=== PATIENT | male | born 1940 | race Caucasian/White ===

== ENCOUNTER 2018-02-23 15:00 | Inpatient (IN) | payer MEDICARE, OTHER ==
[2018-02-23 15:36] LABS: ABNORMAL IP MESSAGE 1; HEMATOCRIT 36.2 % (42.0-52.0); HEMOGLOBIN 11.2 g/dl (14.0-18.0); MEAN CORPUSCULAR HEMOGLOBIN 28.8 pg (29.0-33.0); MEAN CORPUSCULAR HGB CONC 30.9 g/dl (32.0-37.0); MEAN CORPUSCULAR VOLUME 93.1 fl (82.0-101.0); MEAN PLATELET VOLUME 10.9 fl (7.4-10.4); PLATELET COUNT 324 10^3/UL (140-415); POSITIVE DIFF @See below; RED BLOOD COUNT 3.89 10^6/ul (4.70-6.10); RED CELL DISTRIBUTION WIDTH 15.5 % (11.5-14.5)
[2018-02-23 15:36] LABS: WHITE BLOOD COUNT 20.3 10^3/ul (4.8-10.8)
[2018-02-23 15:41] LABS: ADD MAN DIFF? YES
[2018-02-23 15:53] LABS: ALANINE AMINOTRANSFERASE 28 IU/L (13-69); ALBUMIN 3.5 g/dl (3.3-4.9); ALBUMIN/GLOBULIN RATIO 1.16; ALKALINE PHOSPHATASE 93 IU/L (42-121); ANION GAP 6 (5-13); ASPARTATE AMINO TRANSFERASE 27 IU/L (15-46); BILIRUBIN,INDIRECT 0.6 mg/dl (0-1.1); BILIRUBIN,TOTAL 0.6 mg/dl (0.2-1.3); BLOOD UREA NITROGEN 32 mg/dl (7-20); CALCIUM 9.7 mg/dl (8.4-10.2); CARBON DIOXIDE 38 mmol/L (21-31); CHLORIDE 99 mmol/L (97-110); CREATININE 0.68 mg/dl (0.61-1.24); GLUCOSE 176 mg/dl (70-220); POTASSIUM 3.6 mmol/L (3.5-5.1); SODIUM 143 mmol/L (135-144); TOTAL PROTEIN 6.5 g/dl (6.1-8.1)
[2018-02-23 15:55] LABS: INR 1.52; PROTIME 18.6 Sec (11.9-14.9); PT RATIO 1.5
[2018-02-23 15:56] LABS: PARTIAL THROMBOPLASTIN TIME 45.5 Sec (23.0-35.0)
[2018-02-23 16:00] LABS: ADD UMIC YES; UR ASCORBIC ACID 40 mg/dL (NEGATIVE); UR BACTERIA FEW /HPF (NONE SEEN); UR BILIRUBIN (Dip) NEGATIVE (NEGATIVE); UR BLOOD (Dip) NEGATIVE (NEGATIVE); UR CLARITY CLEAR (CLEAR); UR COLOR YELLOW (YELLOW); UR GLUCOSE (Dip) NEGATIVE (NEGATIVE); UR KETONES (Dip) NEGATIVE (NEGATIVE); UR LEUKOCYTE ESTERASE (Dip) NEGATIVE Leu/ul (NEGATIVE); UR MUCUS FEW /HPF (NONE SEEN); UR NITRITE (Dip) NEGATIVE (NEGATIVE); UR RBC 2 /HPF (0-5); UR SPECIFIC GRAVITY (Dip) 1.025 (1.003-1.030); UR TOTAL PROTEIN (Dip) 1+ mg/dl (NEGATIVE); UR UROBILINOGEN (Dip) 1+ mg/dL (NEGATIVE); UR WBC 3 /HPF (0-5)
[2018-02-23 16:05] LABS: TROPONIN-I 0.016 ng/ml (0.000-0.120)
[2018-02-23 16:11] LABS: ANISOCYTOSIS 1+ (0-0); BAND NEUTROPHILS #M 0.8 10^3/ul (0.0-0.6); BAND NEUTROPHILS % (M) 4 % (0-4); BASOPHIL #M 0.2 10^3/ul (0.0-0.0); BASOPHILS % (M) 1 % (0-2); LYMPHOCYTES #M 0.4 10^3/ul (0.8-2.9); LYMPHOCYTES % (M) 2 % (15-51); MICROCYTOSIS 1+ (0-0); MONOCYTE #M 0.6 10^3/ul (0.3-0.9); MONOCYTES % (M) 3 % (0-11); MYELOCYTES #M 0.2 10^3/ul (0.0-0.0); MYELOCYTES % (M) 1 % (0-0); OVALOCYTES 1+ (0-0); PLATELET ESTIMATE NORMAL; POIKILOCYTOSIS 1+ (0-0); SEG NEUT #M 18.2 10^3/ul (1.6-7.5); SEGMENTED NEUTROPHILS (M) % 89 % (39-77); SMUDGE%M 3 % (0-0)
[2018-02-23] MEDS: MEROPENEM 1 GM/50ML(PMX) 50 ML IVPB (17:52)
[2018-02-23] MEDS: SOD CHLORIDE 0.9% IV (17:52)
[2018-02-23] MEDS: VANCOMYCIN 1 GM (PMX) 250 ML IVPB (18:29)
[2018-02-23 19:43] LABS: LACTIC ACID 2.7 mmol/L (0.5-2.0)
[2018-02-23 22:43] LABS: AADO2 Arterial 590.1 mmHg (7.0-24.0); Arterial Base Excess 3.5 mmol/L (-3.0-3); Arterial Blood Gas Oxygen Sat 85.7 mmHG (95.0-100.0); Arterial Fraction of Oxyhgb 84.8 % (93.0-99.0); Arterial HCO3 31.9 mmol/L (22.0-26.0); Arterial MetHb 0.1 % (0.0-1.5); Arterial pCO2 67.9 mmhg (35-45); MODE TRACH COLLAR; Site Right Brachial
[2018-02-23] MEDS ORDERED: VANCOMYCIN IV PER PHARMACY XX (23:00)
[2018-02-23] MEDS ORDERED: ACETAMINOPHEN 650MG/20.3ML CUP GTB (23:00)
[2018-02-23] MEDS ORDERED: DILTIAZEM 25 MG INJ (23:15)
[2018-02-23] MEDS ORDERED: LEVALBUTEROL (NEB) 0.31 MG/3 ML AMP (23:57)
[2018-02-23] MEDS ORDERED: ACETYLCYSTEINE 20% 4 ML VIAL (23:57)
[2018-02-24] MEDS: SOD CHLORIDE 0.9% 1,000 ML IV ×5 (00:10→20:07)
[2018-02-24] MEDS: LEVALBUTEROL (NEB) 0.63 MG/3 ML AMP HHN ×2 (00:12→05:17)
[2018-02-24] MEDS: ACETYLCYSTEINE 20% 4 ML VIAL NEB ×6 (00:13→21:50)
[2018-02-24] MEDS ORDERED: NORepinephrine 8MG/250 ML (PMX 250 ML IV ×2 (01:30→09:00)
[2018-02-24] MEDS: INSULIN ASPART [NOVOLOG] 3 ML PEN SC ×5 (01:57→23:56)
[2018-02-24 04:17] LABS: AADO2 Arterial 137.5 mmHg (7.0-24.0); Allen Test ACCEPTAB; Arterial Base Excess 6.1 mmol/L (-3.0-3); Arterial Blood Gas Oxygen Sat 99.6 mmHG (95.0-100.0); Arterial COHb 0.3 % (0.0-3.0); Arterial Fraction of Oxyhgb 99.3 % (93.0-99.0); Arterial HCO3 28.8 mmol/L (22.0-26.0); Arterial MetHb 0 % (0.0-1.5); Arterial pCO2 34.5 mmhg (35-45); MODE VENT - PC; Site Right Radial
[2018-02-24 05:34] LABS: ADD MAN DIFF? NO
[2018-02-24 05:39] LABS: ABNORMAL IP MESSAGE 1; BASOPHILS % 0.2 % (0.0-2.0); EOSINOPHILS % 0.1 % (0.0-7.0); HEMATOCRIT 33.6 % (42.0-52.0); HEMOGLOBIN 10.1 g/dl (14.0-18.0); LYMPHOCYTES # 1.1 10^3/ul (0.8-2.9); LYMPHOCYTES % 5.9 % (15.0-51.0); MEAN CORPUSCULAR HEMOGLOBIN 28.2 pg (29.0-33.0); MEAN CORPUSCULAR HGB CONC 30.1 g/dl (32.0-37.0); MEAN CORPUSCULAR VOLUME 93.9 fl (82.0-101.0); MEAN PLATELET VOLUME 11.5 fl (7.4-10.4); MONOCYTE # 1.6 10^3/ul (0.3-0.9); MONOCYTES % 8.6 % (0.0-11.0); NEUTROPHIL # 14.9 10^3/ul (1.6-7.5); NEUTROPHILS % 80.9 % (39.0-77.0); PLATELET COUNT 323 10^3/UL (140-415); POSITIVE DIFF @See below; RED BLOOD COUNT 3.58 10^6/ul (4.70-6.10); RED CELL DISTRIBUTION WIDTH 15.5 % (11.5-14.5)
[2018-02-24 05:39] LABS: WHITE BLOOD COUNT 18.4 10^3/ul (4.8-10.8)
[2018-02-24] MEDS: MEROPENEM 1 GM/50ML(PMX) 50 ML IVPB ×3 (05:39→21:45)
[2018-02-24] MEDS: DILTIAZEM 25 MG INJ IV ×2 (05:50→09:51)
[2018-02-24] MEDS: VANCOMYCIN 1.5 GM in SOD CHLORIDE 0.9% 250 ML IVPB (06:07)
[2018-02-24 06:21] LABS: BLOOD UREA NITROGEN 31 mg/dl (7-20); CARBON DIOXIDE 32 mmol/L (21-31); CREATININE 0.72 mg/dl (0.61-1.24); GLUCOSE 179 mg/dl (70-220)
[2018-02-24 07:08] LABS: ANION GAP 7 (5-13); CHLORIDE 107 mmol/L (97-110); POTASSIUM 3.7 mmol/L (3.5-5.1)
[2018-02-24 07:11] LABS: SODIUM 146 mmol/L (135-144)
[2018-02-24 07:35] LABS: AADO2 Arterial 146.1 mmHg (7.0-24.0); Allen Test ACCEPTAB; Arterial Base Excess -0.7 mmol/L (-3.0-3); Arterial Blood Gas Oxygen Sat 99.8 mmHG (95.0-100.0); Arterial COHb 0.3 % (0.0-3.0); Arterial Fraction of Oxyhgb 99.2 % (93.0-99.0); Arterial MetHb 0.3 % (0.0-1.5); Arterial pCO2 98.6 mmhg (35-45); MODE VENT - PC; Site Right Radial
[2018-02-24] MEDS: METOPROLOL 50 MG TAB GTB (09:00)
[2018-02-24] MEDS ORDERED: ENOXAPARIN 30 MG/0.3 ML SYG SC (09:00)
[2018-02-24 09:24] LABS: AADO2 Arterial 170.8 mmHg (7.0-24.0); Allen Test ACCEPTAB; Arterial Base Excess -0.9 mmol/L (-3.0-3); Arterial Blood Gas Oxygen Sat 99.8 mmHG (95.0-100.0); Arterial COHb 0.3 % (0.0-3.0); Arterial Fraction of Oxyhgb 99.4 % (93.0-99.0); Arterial HCO3 25.1 mmol/L (22.0-26.0); Arterial MetHb 0.1 % (0.0-1.5); Arterial pCO2 47.4 mmhg (35-45); MODE VENT - AC; Site Right Radial
[2018-02-24] MEDS: APIXABAN 5 MG TABLET PO (09:50)
[2018-02-24] MEDS: LANSOPRAZOLE 30 MG CAP GTB (10:59)
[2018-02-24] MEDS: MIDAZOLAM (DRIP) 50 mg/50 mL 50 ML IV (11:40)
[2018-02-24] MEDS ORDERED: GLUCOSE GEL 15 GRAM TUBE PO ×2 (14:00)
[2018-02-24] MEDS ORDERED: GLUCAGON 1 MG INJ IM (14:00)
[2018-02-24] MEDS ORDERED: DEXTROSE 50% 50 ML SYRINGE IV ×2 (14:00)
[2018-02-24] MEDS ORDERED: GLUCOSE GEL 15 GRAM TUBE BUCCAL (14:00)
[2018-02-24] MEDS: DIGOXIN 500 MCG INJ IV (14:41)
[2018-02-24] MEDS: LIDOCAINE 1% (MPF) 5 ML VIAL SC (15:45)
[2018-02-24] MEDS: LEVALBUTEROL (HFA) 15 GM INHALER INH (16:43)
[2018-02-24] MEDS ORDERED: VANCOMYCIN 1 GM 250 ML IVPB (18:00)
[2018-02-24] MEDS: ATORVASTATIN 10 MG TAB GTB (20:07)
[2018-02-24] MEDS: NPH, HUMAN INSULIN ISOPHANE 3ML VIAL SC (20:10)
[2018-02-24] MEDS: ALBUTEROL/IPRATROPIUM (NEB) 3 ML AMP HHN (21:50)
[2018-02-25] MEDS: LEVALBUTEROL (HFA) 15 GM INHALER INH
[2018-02-25] MEDS: MIDAZOLAM (DRIP) 50 mg/50 mL 50 ML IV ×3 (00:06→23:01)
[2018-02-25] MEDS: ALBUTEROL/IPRATROPIUM (NEB) 3 ML AMP HHN (02:41)
[2018-02-25] MEDS: ACETYLCYSTEINE 20% 4 ML VIAL NEB ×2 (02:41→05:15)
[2018-02-25] MEDS: LANSOPRAZOLE 30 MG CAP GTB (05:42)
[2018-02-25] MEDS: MEROPENEM 1 GM/50ML(PMX) 50 ML IVPB ×3 (05:42→21:03)
[2018-02-25] MEDS: INSULIN ASPART [NOVOLOG] 3 ML PEN SC ×3 (05:44→18:43)
[2018-02-25 05:57] LABS: WHITE BLOOD COUNT 11.8 10^3/ul (4.8-10.8)
[2018-02-25 05:57] LABS: HEMATOCRIT 27.8 % (42.0-52.0); HEMOGLOBIN 8.6 g/dl (14.0-18.0); MEAN CORPUSCULAR HEMOGLOBIN 28.4 pg (29.0-33.0); MEAN CORPUSCULAR HGB CONC 30.9 g/dl (32.0-37.0); MEAN CORPUSCULAR VOLUME 91.7 fl (82.0-101.0); MEAN PLATELET VOLUME 11.2 fl (7.4-10.4); PLATELET COUNT 303 10^3/UL (140-415); POSITIVE DIFF @See below; RED BLOOD COUNT 3.03 10^6/ul (4.70-6.10); RED CELL DISTRIBUTION WIDTH 15.5 % (11.5-14.5)
[2018-02-25 06:19] LABS: ALANINE AMINOTRANSFERASE 27 IU/L (13-69); ALBUMIN 2.3 g/dl (3.3-4.9); ALBUMIN/GLOBULIN RATIO 0.95; ALKALINE PHOSPHATASE 72 IU/L (42-121); ANION GAP 7 (5-13); ASPARTATE AMINO TRANSFERASE 19 IU/L (15-46); BILIRUBIN,INDIRECT 0.3 mg/dl (0-1.1); BILIRUBIN,TOTAL 0.3 mg/dl (0.2-1.3); BLOOD UREA NITROGEN 36 mg/dl (7-20); CALCIUM 8.3 mg/dl (8.4-10.2); CARBON DIOXIDE 34 mmol/L (21-31); CHLORIDE 111 mmol/L (97-110); CREATININE 0.61 mg/dl (0.61-1.24); GLUCOSE 122 mg/dl (70-220); POTASSIUM 3.1 mmol/L (3.5-5.1); SODIUM 152 mmol/L (135-144); TOTAL PROTEIN 4.7 g/dl (6.1-8.1)
[2018-02-25] MEDS: VANCOMYCIN 1.5 GM in SOD CHLORIDE 0.9% 250 ML IVPB (06:22)
[2018-02-25 06:23] LABS: ADD MAN DIFF? YES
[2018-02-25 08:34] LABS: ANISOCYTOSIS 1+ (0-0); BAND NEUTROPHILS #M 0.7 10^3/ul (0.0-0.6); BAND NEUTROPHILS % (M) 6 % (0-4); BURR CELLS 1+ (0-0); EOSINOPHILS % (M) 1 % (0-7); HYPOCHROMASIA 1+ (0-0); LYMPHOCYTES #M 0.8 10^3/ul (0.8-2.9); LYMPHOCYTES % (M) 7 % (15-51); MONOCYTE #M 0.7 10^3/ul (0.3-0.9); MONOCYTES % (M) 6 % (0-11); PLATELET ESTIMATE NORMAL; POIKILOCYTOSIS 2+ (0-0); POLYCHROMASIA 1+ (0-0); REACTIVE LYMPHOCYTES #M 0.1 10^3/ul (0.0-0.0); REACTIVE LYMPHOCYTES% (M) 1 % (0-0); SEG NEUT #M 9.4 10^3/ul (1.6-7.5); SEGMENTED NEUTROPHILS (M) % 79 % (39-77); SMUDGE%M 3 % (0-0)
[2018-02-25] MEDS: NPH, HUMAN INSULIN ISOPHANE 3ML VIAL SC ×2 (09:00→20:55)
[2018-02-25 09:57] LABS: MAGNESIUM 2.2 mg/dl (1.7-2.5)
[2018-02-25 09:57] LABS: PHOSPHORUS 2.2 mg/dl (2.5-4.9)
[2018-02-25] MEDS: POTASSIUM CHLORIDE 20 MEQ POWDER FOR ORAL SOLN GTB (10:57)
[2018-02-25] MEDS: APIXABAN 5 MG TABLET PO ×2 (10:57→21:03)
[2018-02-25] MEDS: POTASSIUM PHOSPHATE 20 MM in SOD CHLORIDE 0.9% 250 ML IVPB (12:57)
[2018-02-25] MEDS ORDERED: POTASSIUM CHLORIDE 20 MEQ POWDER FOR ORAL SOLN NGT (13:00)
[2018-02-25] MEDS: FENTAnyl (DRIP) 1000 mcg/100mL 100 ML IV (15:25)
[2018-02-25] MEDS: DILTIAZEM 25 MG INJ IV (17:05)
[2018-02-25] MEDS: NORepinephrine 8MG/250 ML (PMX 250 ML IV (20:56)
[2018-02-25] MEDS: ATORVASTATIN 10 MG TAB GTB (21:02)
[2018-02-26] MEDS: LANSOPRAZOLE 30 MG CAP GTB (05:16)
[2018-02-26] MEDS: MEROPENEM 1 GM/50ML(PMX) 50 ML IVPB ×3 (05:16→22:04)
[2018-02-26 05:19] LABS: ADD MAN DIFF? NO
[2018-02-26 05:23] LABS: WHITE BLOOD COUNT 9.1 10^3/ul (4.8-10.8)
[2018-02-26 05:23] LABS: BASOPHILS % 0.2 % (0.0-2.0); EOSINOPHILS # 0.3 10^3/ul (0.0-0.5); EOSINOPHILS % 3.2 % (0.0-7.0); HEMATOCRIT 29.3 % (42.0-52.0); HEMOGLOBIN 8.9 g/dl (14.0-18.0); LYMPHOCYTES # 1.2 10^3/ul (0.8-2.9); LYMPHOCYTES % 13.1 % (15.0-51.0); MEAN CORPUSCULAR HEMOGLOBIN 28.1 pg (29.0-33.0); MEAN CORPUSCULAR HGB CONC 30.4 g/dl (32.0-37.0); MEAN CORPUSCULAR VOLUME 92.4 fl (82.0-101.0); MEAN PLATELET VOLUME 11.3 fl (7.4-10.4); MONOCYTE # 0.6 10^3/ul (0.3-0.9); NEUTROPHIL # 6.9 10^3/ul (1.6-7.5); NEUTROPHILS % 76.1 % (39.0-77.0); PLATELET COUNT 276 10^3/UL (140-415); RED BLOOD COUNT 3.17 10^6/ul (4.70-6.10); RED CELL DISTRIBUTION WIDTH 15.8 % (11.5-14.5)
[2018-02-26 05:40] LABS: ALANINE AMINOTRANSFERASE 28 IU/L (13-69); ALBUMIN 2.2 g/dl (3.3-4.9); ALBUMIN/GLOBULIN RATIO 0.88; ALKALINE PHOSPHATASE 81 IU/L (42-121); ANION GAP 1 (5-13); ASPARTATE AMINO TRANSFERASE 20 IU/L (15-46); BILIRUBIN,INDIRECT 0.2 mg/dl (0-1.1); BILIRUBIN,TOTAL 0.2 mg/dl (0.2-1.3); BLOOD UREA NITROGEN 29 mg/dl (7-20); CARBON DIOXIDE 34 mmol/L (21-31); CHLORIDE 115 mmol/L (97-110); CREATININE 0.58 mg/dl (0.61-1.24); GLUCOSE 92 mg/dl (70-220); POTASSIUM 3.2 mmol/L (3.5-5.1); SODIUM 150 mmol/L (135-144); TOTAL PROTEIN 4.7 g/dl (6.1-8.1)
[2018-02-26 05:43] LABS: VANCOMYCIN,TROUGH 10.2 ug/ml (10.0-20.0)
[2018-02-26] MEDS: INSULIN ASPART [NOVOLOG] 3 ML PEN SC ×5 (05:59→23:52)
[2018-02-26] MEDS: VANCOMYCIN 1.5 GM in SOD CHLORIDE 0.9% 250 ML IVPB (06:03)
[2018-02-26 06:27] LABS: MAGNESIUM 2.2 mg/dl (1.7-2.5)
[2018-02-26 06:27] LABS: PHOSPHORUS 2.3 mg/dl (2.5-4.9)
[2018-02-26] MEDS: FENTAnyl (DRIP) 1000 mcg/100mL 100 ML IV (06:53)
[2018-02-26] MEDS: POTASSIUM CHLORIDE 20 MEQ POWDER FOR ORAL SOLN GTB (09:03)
[2018-02-26] MEDS: APIXABAN 5 MG TABLET PO ×2 (09:03→21:37)
[2018-02-26] MEDS: NPH, HUMAN INSULIN ISOPHANE 3ML VIAL SC ×2 (09:10→21:37)
[2018-02-26] MEDS: POTASSIUM PHOSPHATE 20 MM in SOD CHLORIDE 0.9% 250 ML IVPB (12:32)
[2018-02-26 12:45] LABS: HEPATITIS B SURFACE ANTIGEN NEGATIVE (NEGATIVE)
[2018-02-26] MEDS: BALSAM PERU/CASTOR OIL 60 GM TUBE TOP ×2 (13:00→21:37)
[2018-02-26 13:01] LABS: HEPATITIS B SURFACE ANTIBODY NEGATIVE (NEGATIVE)
[2018-02-26 13:01] LABS: HEPATITIS C VIRAL ANTIBODY NEGATIVE (NEGATIVE); HIV 1&2 ANTIBODY NEGATIVE (NEGATIVE)
[2018-02-26] MEDS: VANCOMYCIN 1 GM 250 ML IVPB (18:45)
[2018-02-26] MEDS: MIDAZOLAM (DRIP) 50 mg/50 mL 50 ML IV (19:30)
[2018-02-26] MEDS: ATORVASTATIN 10 MG TAB GTB (21:37)
[2018-02-27] MEDS: FENTAnyl (DRIP) 1000 mcg/100mL 100 ML IV ×2 (00:34→13:38)
[2018-02-27] MEDS: LANSOPRAZOLE 30 MG CAP GTB (05:18)
[2018-02-27] MEDS: VANCOMYCIN 1 GM 250 ML IVPB ×2 (05:18→17:54)
[2018-02-27] MEDS: MEROPENEM 1 GM/50ML(PMX) 50 ML IVPB ×2 (05:18→14:13)
[2018-02-27] MEDS: INSULIN ASPART [NOVOLOG] 3 ML PEN SC ×4 (05:27→23:40)
[2018-02-27 05:52] LABS: ADD MAN DIFF? NO
[2018-02-27 05:55] LABS: WHITE BLOOD COUNT 8.8 10^3/ul (4.8-10.8)
[2018-02-27 05:55] LABS: BASOPHILS % 0.5 % (0.0-2.0); EOSINOPHILS # 0.3 10^3/ul (0.0-0.5); EOSINOPHILS % 3.9 % (0.0-7.0); HEMATOCRIT 30.1 % (42.0-52.0); HEMOGLOBIN 9.2 g/dl (14.0-18.0); LYMPHOCYTES # 1.5 10^3/ul (0.8-2.9); LYMPHOCYTES % 17.3 % (15.0-51.0); MEAN CORPUSCULAR HEMOGLOBIN 28.5 pg (29.0-33.0); MEAN CORPUSCULAR HGB CONC 30.6 g/dl (32.0-37.0); MEAN CORPUSCULAR VOLUME 93.2 fl (82.0-101.0); MEAN PLATELET VOLUME 11.2 fl (7.4-10.4); MONOCYTE # 0.7 10^3/ul (0.3-0.9); MONOCYTES % 8.5 % (0.0-11.0); NEUTROPHIL # 5.9 10^3/ul (1.6-7.5); NEUTROPHILS % 67.6 % (39.0-77.0); PLATELET COUNT 250 10^3/UL (140-415); RED BLOOD COUNT 3.23 10^6/ul (4.70-6.10); RED CELL DISTRIBUTION WIDTH 15.9 % (11.5-14.5)
[2018-02-27 06:35] LABS: ALANINE AMINOTRANSFERASE 24 IU/L (13-69); ALBUMIN 2.3 g/dl (3.3-4.9); ALBUMIN/GLOBULIN RATIO 0.95; ALKALINE PHOSPHATASE 78 IU/L (42-121); ANION GAP 5 (5-13); ASPARTATE AMINO TRANSFERASE 20 IU/L (15-46); BILIRUBIN,INDIRECT 0.2 mg/dl (0-1.1); BILIRUBIN,TOTAL 0.2 mg/dl (0.2-1.3); BLOOD UREA NITROGEN 25 mg/dl (7-20); CALCIUM 7.9 mg/dl (8.4-10.2); CARBON DIOXIDE 35 mmol/L (21-31); CHLORIDE 111 mmol/L (97-110); CREATININE 0.55 mg/dl (0.61-1.24); GLUCOSE 104 mg/dl (70-220); POTASSIUM 3.8 mmol/L (3.5-5.1); SODIUM 151 mmol/L (135-144); TOTAL PROTEIN 4.7 g/dl (6.1-8.1)
[2018-02-27] MEDS: APIXABAN 5 MG TABLET PO ×2 (09:02→20:40)
[2018-02-27] MEDS: BALSAM PERU/CASTOR OIL 60 GM TUBE TOP ×2 (09:02→20:40)
[2018-02-27] MEDS: NPH, HUMAN INSULIN ISOPHANE 3ML VIAL SC ×2 (09:15→20:48)
[2018-02-27] MEDS: POLYETHYLENE GLYCOL 17 GM PACKET GTB (11:53)
[2018-02-27] MEDS: DOCUSATE SODIUM 10 MG/ML (10ML CUP) GTB ×2 (11:53→20:40)
[2018-02-27] MEDS: MIDAZOLAM (DRIP) 50 mg/50 mL 50 ML IV ×2 (11:54→22:23)
[2018-02-27] MEDS: DIGOXIN 500 MCG INJ IV ×3 (14:14→21:47)
[2018-02-27] MEDS: ATORVASTATIN 10 MG TAB GTB (20:40)
[2018-02-28] MEDS: FENTAnyl (DRIP) 1000 mcg/100mL 100 ML IV (05:15)
[2018-02-28 05:16] LABS: ADD MAN DIFF? NO; BASOPHILS % 0.4 % (0.0-2.0); EOSINOPHILS # 0.5 10^3/ul (0.0-0.5); EOSINOPHILS % 4.9 % (0.0-7.0); HEMOGLOBIN 8.7 g/dl (14.0-18.0); LYMPHOCYTES # 1.7 10^3/ul (0.8-2.9); LYMPHOCYTES % 18.2 % (15.0-51.0); MEAN CORPUSCULAR HEMOGLOBIN 28.3 pg (29.0-33.0); MEAN CORPUSCULAR VOLUME 94.5 fl (82.0-101.0); MEAN PLATELET VOLUME 11.7 fl (7.4-10.4); MONOCYTE # 0.6 10^3/ul (0.3-0.9); MONOCYTES % 6.2 % (0.0-11.0); NEUTROPHIL # 6.3 10^3/ul (1.6-7.5); NEUTROPHILS % 68.1 % (39.0-77.0); PLATELET COUNT 265 10^3/UL (140-415); RED BLOOD COUNT 3.07 10^6/ul (4.70-6.10); RED CELL DISTRIBUTION WIDTH 15.8 % (11.5-14.5)
[2018-02-28 05:16] LABS: WHITE BLOOD COUNT 9.2 10^3/ul (4.8-10.8)
[2018-02-28 05:42] LABS: ANION GAP 5 (5-13); BLOOD UREA NITROGEN 23 mg/dl (7-20); CALCIUM 7.7 mg/dl (8.4-10.2); CARBON DIOXIDE 33 mmol/L (21-31); CHLORIDE 110 mmol/L (97-110); GLUCOSE 87 mg/dl (70-220); POTASSIUM 3.8 mmol/L (3.5-5.1); SODIUM 148 mmol/L (135-144)
[2018-02-28 05:45] LABS: VANCOMYCIN,TROUGH 21.9 ug/ml (10.0-20.0)
[2018-02-28] MEDS: LANSOPRAZOLE 30 MG CAP GTB (05:54)
[2018-02-28] MEDS: INSULIN ASPART [NOVOLOG] 3 ML PEN SC ×4 (05:56→23:34)
[2018-02-28 06:03] LABS: MAGNESIUM 2.2 mg/dl (1.7-2.5)
[2018-02-28] MEDS: BALSAM PERU/CASTOR OIL 60 GM TUBE TOP ×2 (08:58→20:29)
[2018-02-28] MEDS: POLYETHYLENE GLYCOL 17 GM PACKET GTB (08:58)
[2018-02-28] MEDS: DOCUSATE SODIUM 10 MG/ML (10ML CUP) GTB ×2 (09:05→20:29)
[2018-02-28] MEDS: APIXABAN 5 MG TABLET PO ×2 (09:06→20:29)
[2018-02-28] MEDS: NPH, HUMAN INSULIN ISOPHANE 3ML VIAL SC ×2 (09:19→20:28)
[2018-02-28] MEDS: VANCOMYCIN 750 MG in SOD CHLORIDE 0.9% 150 ML IVPB ×2 (10:56→22:14)
[2018-02-28] MEDS: MIDAZOLAM (DRIP) 50 mg/50 mL 50 ML IV (13:50)
[2018-02-28] MEDS: DIGOXIN 0.125 MG TAB PO (14:30)
[2018-02-28] MEDS: ATORVASTATIN 10 MG TAB GTB (20:29)
[2018-03-01] MEDS: MIDAZOLAM (DRIP) 50 mg/50 mL 50 ML IV ×2 (00:39→15:48)
[2018-03-01] MEDS: FENTAnyl (DRIP) 1000 mcg/100mL 100 ML IV ×2 (00:42→15:49)
[2018-03-01] MEDS: LANSOPRAZOLE 30 MG CAP GTB (05:10)
[2018-03-01] MEDS: INSULIN ASPART [NOVOLOG] 3 ML PEN SC ×4 (05:17→23:20)
[2018-03-01] MEDS: NPH, HUMAN INSULIN ISOPHANE 3ML VIAL SC ×2 (08:04→20:00)
[2018-03-01] MEDS: POLYETHYLENE GLYCOL 17 GM PACKET GTB (09:11)
[2018-03-01] MEDS: DOCUSATE SODIUM 10 MG/ML (10ML CUP) GTB ×2 (09:11→20:31)
[2018-03-01] MEDS: BALSAM PERU/CASTOR OIL 60 GM TUBE TOP ×2 (09:12→20:30)
[2018-03-01] MEDS: APIXABAN 5 MG TABLET PO ×2 (09:12→20:31)
[2018-03-01] MEDS: VANCOMYCIN 750 MG in SOD CHLORIDE 0.9% 150 ML IVPB ×2 (10:06→22:15)
[2018-03-01] MEDS: MUPIROCIN 2% 22 GM OINT TOP ×2 (10:31→20:30)
[2018-03-01] MEDS: DIGOXIN 0.125 MG TAB PO (13:00)
[2018-03-01] MEDS: ATORVASTATIN 10 MG TAB GTB (20:31)
[2018-03-01 21:46] LABS: VANCOMYCIN,TROUGH 16.6 ug/ml (10.0-20.0)
[2018-03-02] MEDS: MIDAZOLAM (DRIP) 50 mg/50 mL 50 ML IV ×4 (01:27→22:55)
[2018-03-02] MEDS: INSULIN ASPART [NOVOLOG] 3 ML PEN SC ×3 (06:00→18:00)
[2018-03-02 06:18] LABS: DIGOXIN 1.1 ng/ml (1.0-2.0)
[2018-03-02 06:19] LABS: ALANINE AMINOTRANSFERASE 20 IU/L (13-69); ALBUMIN 2.4 g/dl (3.3-4.9); ALKALINE PHOSPHATASE 67 IU/L (42-121); ANION GAP 8 (5-13); ASPARTATE AMINO TRANSFERASE 20 IU/L (15-46); BILIRUBIN,INDIRECT 0.5 mg/dl (0-1.1); BILIRUBIN,TOTAL 0.5 mg/dl (0.2-1.3); BLOOD UREA NITROGEN 20 mg/dl (7-20); CALCIUM 7.7 mg/dl (8.4-10.2); CARBON DIOXIDE 31 mmol/L (21-31); CHLORIDE 106 mmol/L (97-110); CREATININE 0.53 mg/dl (0.61-1.24); GLUCOSE 79 mg/dl (70-220); MAGNESIUM 2.2 mg/dl (1.7-2.5); POTASSIUM 4.1 mmol/L (3.5-5.1); SODIUM 145 mmol/L (135-144); TOTAL PROTEIN 4.8 g/dl (6.1-8.1)
[2018-03-02] MEDS: FENTAnyl (DRIP) 1000 mcg/100mL 100 ML IV ×2 (06:27→15:50)
[2018-03-02] MEDS: LANSOPRAZOLE 30 MG CAP GTB (06:29)
[2018-03-02] MEDS: NORepinephrine 8MG/250 ML (PMX 250 ML IV (06:46)
[2018-03-02] MEDS: NPH, HUMAN INSULIN ISOPHANE 3ML VIAL SC ×2 (07:56→20:00)
[2018-03-02] MEDS: DOCUSATE SODIUM 10 MG/ML (10ML CUP) GTB ×2 (08:21→20:47)
[2018-03-02] MEDS: POLYETHYLENE GLYCOL 17 GM PACKET GTB (08:21)
[2018-03-02] MEDS: BALSAM PERU/CASTOR OIL 60 GM TUBE TOP ×2 (08:22→20:48)
[2018-03-02] MEDS: APIXABAN 5 MG TABLET PO ×2 (08:22→20:48)
[2018-03-02] MEDS: MUPIROCIN 2% 22 GM OINT TOP ×2 (08:22→20:48)
[2018-03-02] MEDS: VANCOMYCIN 750 MG in SOD CHLORIDE 0.9% 150 ML IVPB ×2 (10:28→22:24)
[2018-03-02] MEDS ORDERED: PENDING SANTYL ORDER FOR WOUND CARE XX (17:00)
[2018-03-02] MEDS: ATORVASTATIN 10 MG TAB GTB (20:47)
[2018-03-03] MEDS: MIDAZOLAM (DRIP) 50 mg/50 mL 50 ML IV ×3 (03:08→15:51)
[2018-03-03] MEDS: FENTAnyl (DRIP) 1000 mcg/100mL 100 ML IV ×2 (03:10→14:43)
[2018-03-03] MEDS: INSULIN ASPART [NOVOLOG] 3 ML PEN SC ×4 (06:00→18:47)
[2018-03-03] MEDS: LANSOPRAZOLE 30 MG CAP GTB (06:40)
[2018-03-03] MEDS: NPH, HUMAN INSULIN ISOPHANE 3ML VIAL SC ×2 (08:00→20:56)
[2018-03-03] MEDS: BALSAM PERU/CASTOR OIL 60 GM TUBE TOP ×2 (08:23→20:54)
[2018-03-03] MEDS: MUPIROCIN 2% 22 GM OINT TOP ×2 (08:23→20:54)
[2018-03-03] MEDS: DOCUSATE SODIUM 10 MG/ML (10ML CUP) GTB ×2 (08:23→20:54)
[2018-03-03] MEDS: APIXABAN 5 MG TABLET PO ×2 (08:23→20:53)
[2018-03-03] MEDS: POLYETHYLENE GLYCOL 17 GM PACKET GTB (08:23)
[2018-03-03] MEDS: VANCOMYCIN 750 MG in SOD CHLORIDE 0.9% 150 ML IVPB ×2 (11:50→22:31)
[2018-03-03] MEDS: ATORVASTATIN 10 MG TAB GTB (20:53)
[2018-03-04] MEDS: INSULIN ASPART [NOVOLOG] 3 ML PEN SC ×4 (00:07→17:41)
[2018-03-04] MEDS: MIDAZOLAM (DRIP) 50 mg/50 mL 50 ML IV ×3 (00:08→16:56)
[2018-03-04] MEDS: LANSOPRAZOLE 30 MG CAP GTB (06:11)
[2018-03-04] MEDS: NPH, HUMAN INSULIN ISOPHANE 3ML VIAL SC ×2 (07:44→20:33)
[2018-03-04] MEDS: APIXABAN 5 MG TABLET PO ×2 (08:41→20:31)
[2018-03-04] MEDS: MUPIROCIN 2% 22 GM OINT TOP ×2 (08:41→20:31)
[2018-03-04] MEDS: BALSAM PERU/CASTOR OIL 60 GM TUBE TOP ×2 (08:41→20:31)
[2018-03-04] MEDS: DOCUSATE SODIUM 10 MG/ML (10ML CUP) GTB ×2 (08:41→20:31)
[2018-03-04] MEDS: POLYETHYLENE GLYCOL 17 GM PACKET GTB (08:41)
[2018-03-04] MEDS: VANCOMYCIN 750 MG in SOD CHLORIDE 0.9% 150 ML IVPB ×2 (09:56→22:51)
[2018-03-04] MEDS: FENTAnyl (DRIP) 1000 mcg/100mL 100 ML IV (12:56)
[2018-03-04] MEDS: ATORVASTATIN 10 MG TAB GTB (20:31)
[2018-03-05 05:08] LABS: WHITE BLOOD COUNT 8.8 10^3/ul (4.8-10.8)
[2018-03-05 05:08] LABS: BASOPHILS % 0.3 % (0.0-2.0); EOSINOPHILS # 0.5 10^3/ul (0.0-0.5); EOSINOPHILS % 5.9 % (0.0-7.0); HEMATOCRIT 24.7 % (42.0-52.0); HEMOGLOBIN 7.7 g/dl (14.0-18.0); LYMPHOCYTES # 1.4 10^3/ul (0.8-2.9); LYMPHOCYTES % 16.3 % (15.0-51.0); MEAN CORPUSCULAR HEMOGLOBIN 28.4 pg (29.0-33.0); MEAN CORPUSCULAR HGB CONC 31.2 g/dl (32.0-37.0); MEAN CORPUSCULAR VOLUME 91.1 fl (82.0-101.0); MEAN PLATELET VOLUME 11.7 fl (7.4-10.4); MONOCYTE # 0.6 10^3/ul (0.3-0.9); NEUTROPHIL # 6.1 10^3/ul (1.6-7.5); NEUTROPHILS % 69.1 % (39.0-77.0); PLATELET COUNT 346 10^3/UL (140-415); RED BLOOD COUNT 2.71 10^6/ul (4.70-6.10); RED CELL DISTRIBUTION WIDTH 15.4 % (11.5-14.5)
[2018-03-05 05:09] LABS: ADD MAN DIFF? NO
[2018-03-05] MEDS: MIDAZOLAM (DRIP) 50 mg/50 mL 50 ML IV ×2 (05:30→15:23)
[2018-03-05 05:37] LABS: ANION GAP 4 (5-13); BLOOD UREA NITROGEN 17 mg/dl (7-20); CALCIUM 7.4 mg/dl (8.4-10.2); CARBON DIOXIDE 31 mmol/L (21-31); CHLORIDE 105 mmol/L (97-110); CREATININE 0.64 mg/dl (0.61-1.24); GLUCOSE 103 mg/dl (70-220); POTASSIUM 3.1 mmol/L (3.5-5.1); SODIUM 140 mmol/L (135-144)
[2018-03-05] MEDS: LANSOPRAZOLE 30 MG CAP GTB (05:57)
[2018-03-05] MEDS: INSULIN ASPART [NOVOLOG] 3 ML PEN SC ×4 (05:59→18:00)
[2018-03-05] MEDS: APIXABAN 5 MG TABLET PO ×2 (08:48→20:35)
[2018-03-05] MEDS: DOCUSATE SODIUM 10 MG/ML (10ML CUP) GTB ×2 (08:48→20:35)
[2018-03-05] MEDS: POLYETHYLENE GLYCOL 17 GM PACKET GTB (08:48)
[2018-03-05] MEDS: BALSAM PERU/CASTOR OIL 60 GM TUBE TOP ×2 (08:58→20:35)
[2018-03-05] MEDS: MUPIROCIN 2% 22 GM OINT TOP ×2 (08:59→20:35)
[2018-03-05] MEDS: NPH, HUMAN INSULIN ISOPHANE 3ML VIAL SC ×2 (09:02→20:00)
[2018-03-05 10:03] LABS: VANCOMYCIN,TROUGH 16.6 ug/ml (10.0-20.0)
[2018-03-05] MEDS: VANCOMYCIN 750 MG in SOD CHLORIDE 0.9% 150 ML IVPB ×2 (10:09→21:43)
[2018-03-05] MEDS: POTASSIUM CHLORIDE 100 ML IVPB ×2 (11:09→13:13)
[2018-03-05] MEDS: IOHEXOL 300MG/ML 150 ML BTL (12:05)
[2018-03-05] MEDS: SOD CHLORIDE 0.9% 100 ML (12:05)
[2018-03-05] MEDS: NORepinephrine 8MG/250 ML (PMX 250 ML IV (12:46)
[2018-03-05] MEDS: POTASSIUM CHLORIDE 20 MEQ POWDER FOR ORAL SOLN NGT (15:02)
[2018-03-05] MEDS: ATORVASTATIN 10 MG TAB GTB (20:34)
[2018-03-06] MEDS: MIDAZOLAM (DRIP) 50 mg/50 mL 50 ML IV ×4 (00:55→16:28)
[2018-03-06 05:22] LABS: ADD MAN DIFF? NO
[2018-03-06 05:38] LABS: WHITE BLOOD COUNT 8.2 10^3/ul (4.8-10.8)
[2018-03-06 05:38] LABS: BASOPHILS % 0.5 % (0.0-2.0); EOSINOPHILS # 0.5 10^3/ul (0.0-0.5); EOSINOPHILS % 5.6 % (0.0-7.0); HEMATOCRIT 25.2 % (42.0-52.0); HEMOGLOBIN 7.9 g/dl (14.0-18.0); LYMPHOCYTES # 1.3 10^3/ul (0.8-2.9); LYMPHOCYTES % 15.4 % (15.0-51.0); MEAN CORPUSCULAR HEMOGLOBIN 28.6 pg (29.0-33.0); MEAN CORPUSCULAR HGB CONC 31.3 g/dl (32.0-37.0); MEAN CORPUSCULAR VOLUME 91.3 fl (82.0-101.0); MEAN PLATELET VOLUME 12.4 fl (7.4-10.4); MONOCYTE # 0.7 10^3/ul (0.3-0.9); NEUTROPHIL # 5.7 10^3/ul (1.6-7.5); NEUTROPHILS % 69.2 % (39.0-77.0); PLATELET COUNT 343 10^3/UL (140-415); RED BLOOD COUNT 2.76 10^6/ul (4.70-6.10); RED CELL DISTRIBUTION WIDTH 15.1 % (11.5-14.5)
[2018-03-06] MEDS: FENTAnyl (DRIP) 1000 mcg/100mL 100 ML IV (05:55)
[2018-03-06 05:58] LABS: ANION GAP 8 (5-13); BLOOD UREA NITROGEN 16 mg/dl (7-20); CALCIUM 7.9 mg/dl (8.4-10.2); CARBON DIOXIDE 30 mmol/L (21-31); CHLORIDE 105 mmol/L (97-110); CREATININE 0.61 mg/dl (0.61-1.24); GLUCOSE 90 mg/dl (70-220); POTASSIUM 3.9 mmol/L (3.5-5.1); SODIUM 143 mmol/L (135-144)
[2018-03-06] MEDS: LANSOPRAZOLE 30 MG CAP GTB (05:59)
[2018-03-06] MEDS: INSULIN ASPART [NOVOLOG] 3 ML PEN SC ×5 (06:00→23:41)
[2018-03-06 06:13] LABS: MAGNESIUM 2.1 mg/dl (1.7-2.5)
[2018-03-06] MEDS ORDERED: ROCURONIUM 50 MG INJ (07:00)
[2018-03-06] MEDS: NPH, HUMAN INSULIN ISOPHANE 3ML VIAL SC ×2 (08:00→21:05)
[2018-03-06] MEDS: APIXABAN 5 MG TABLET PO ×2 (09:25→21:05)
[2018-03-06] MEDS: POLYETHYLENE GLYCOL 17 GM PACKET GTB (09:25)
[2018-03-06] MEDS: MUPIROCIN 2% 22 GM OINT TOP ×2 (09:26→21:06)
[2018-03-06] MEDS: BALSAM PERU/CASTOR OIL 60 GM TUBE TOP ×2 (09:26→21:06)
[2018-03-06] MEDS: DOCUSATE SODIUM 10 MG/ML (10ML CUP) GTB ×2 (09:26→21:05)
[2018-03-06] MEDS: VANCOMYCIN 750 MG (PMX) 250 ML IVPB ×2 (09:26→22:13)
[2018-03-06] MEDS ORDERED: CEFAZOLIN 1 GM INJ (13:49)
[2018-03-06] MEDS ORDERED: LIDOCAINE 100 MG SYRINGE (13:49)
[2018-03-06] MEDS ORDERED: PROPOFOL 40 ML (13:49)
[2018-03-06] MEDS ORDERED: PHENYLephrine (100 MCG/ML) 5ML SYG (13:51)
[2018-03-06] MEDS ORDERED: LEVALBUTEROL (NEB) 1.25 MG/0.5 ML AMP (15:08)
[2018-03-06] MEDS: ATORVASTATIN 10 MG TAB GTB (21:05)
[2018-03-07] MEDS: FENTAnyl (DRIP) 1000 mcg/100mL 100 ML IV (00:23)
[2018-03-07] MEDS: MIDAZOLAM (DRIP) 50 mg/50 mL 50 ML IV (00:40)
[2018-03-07 05:10] LABS: ADD MAN DIFF? NO
[2018-03-07 05:15] LABS: WHITE BLOOD COUNT 6.8 10^3/ul (4.8-10.8)
[2018-03-07 05:15] LABS: BASOPHILS % 0.4 % (0.0-2.0); EOSINOPHILS # 0.4 10^3/ul (0.0-0.5); EOSINOPHILS % 6.2 % (0.0-7.0); HEMATOCRIT 26.4 % (42.0-52.0); HEMOGLOBIN 8.3 g/dl (14.0-18.0); LYMPHOCYTES # 1.1 10^3/ul (0.8-2.9); LYMPHOCYTES % 16.8 % (15.0-51.0); MEAN CORPUSCULAR HEMOGLOBIN 28.2 pg (29.0-33.0); MEAN CORPUSCULAR HGB CONC 31.4 g/dl (32.0-37.0); MEAN CORPUSCULAR VOLUME 89.8 fl (82.0-101.0); MEAN PLATELET VOLUME 11.5 fl (7.4-10.4); MONOCYTE # 0.6 10^3/ul (0.3-0.9); MONOCYTES % 9.1 % (0.0-11.0); NEUTROPHIL # 4.5 10^3/ul (1.6-7.5); NEUTROPHILS % 66.3 % (39.0-77.0); PLATELET COUNT 346 10^3/UL (140-415); RED BLOOD COUNT 2.94 10^6/ul (4.70-6.10); RED CELL DISTRIBUTION WIDTH 15.1 % (11.5-14.5)
[2018-03-07 05:50] LABS: ANION GAP 6 (5-13); BLOOD UREA NITROGEN 16 mg/dl (7-20); CALCIUM 7.8 mg/dl (8.4-10.2); CARBON DIOXIDE 30 mmol/L (21-31); CHLORIDE 107 mmol/L (97-110); CREATININE 0.65 mg/dl (0.61-1.24); GLUCOSE 85 mg/dl (70-220); MAGNESIUM 2.1 mg/dl (1.7-2.5); PHOSPHORUS 3.8 mg/dl (2.5-4.9); POTASSIUM 3.5 mmol/L (3.5-5.1); SODIUM 143 mmol/L (135-144)
[2018-03-07] MEDS: INSULIN ASPART [NOVOLOG] 3 ML PEN SC ×4 (06:00→23:39)
[2018-03-07] MEDS: LANSOPRAZOLE 30 MG CAP GTB (06:30)
[2018-03-07] MEDS: NPH, HUMAN INSULIN ISOPHANE 3ML VIAL SC ×2 (08:00→20:05)
[2018-03-07] MEDS: POLYETHYLENE GLYCOL 17 GM PACKET GTB (09:24)
[2018-03-07] MEDS: DOCUSATE SODIUM 10 MG/ML (10ML CUP) GTB ×2 (09:24→20:03)
[2018-03-07] MEDS: APIXABAN 5 MG TABLET PO ×2 (09:25→20:03)
[2018-03-07] MEDS: MUPIROCIN 2% 22 GM OINT TOP ×2 (09:25→20:10)
[2018-03-07] MEDS: BALSAM PERU/CASTOR OIL 60 GM TUBE TOP ×2 (09:25→20:11)
[2018-03-07] MEDS: VANCOMYCIN 750 MG (PMX) 250 ML IVPB ×2 (11:16→21:48)
[2018-03-07] MEDS: LORAZEPAM 4 MG/ML VIAL IV ×2 (12:47→21:00)
[2018-03-07] MEDS: morphine 2 MG INJ IV ×2 (17:43→23:08)
[2018-03-07] MEDS: ATORVASTATIN 10 MG TAB GTB (20:03)
[2018-03-08] MEDS: LORAZEPAM 4 MG/ML VIAL IV ×3 (02:31→15:03)
[2018-03-08] MEDS: LANSOPRAZOLE 30 MG CAP GTB (05:22)
[2018-03-08] MEDS: INSULIN ASPART [NOVOLOG] 3 ML PEN SC ×3 (05:27→18:00)
[2018-03-08] MEDS: DOCUSATE SODIUM 10 MG/ML (10ML CUP) GTB ×2 (09:00→21:05)
[2018-03-08] MEDS: POLYETHYLENE GLYCOL 17 GM PACKET GTB (09:00)
[2018-03-08] MEDS: APIXABAN 5 MG TABLET PO ×2 (09:52→21:05)
[2018-03-08] MEDS: BALSAM PERU/CASTOR OIL 60 GM TUBE TOP ×2 (09:53→21:05)
[2018-03-08] MEDS: MUPIROCIN 2% 22 GM OINT TOP (09:53)
[2018-03-08] MEDS: NPH, HUMAN INSULIN ISOPHANE 3ML VIAL SC ×2 (09:56→21:48)
[2018-03-08] MEDS: VANCOMYCIN 750 MG (PMX) 250 ML IVPB ×2 (10:54→22:09)
[2018-03-08] MEDS: DILTIAZEM 25 MG INJ IV (19:27)
[2018-03-08] MEDS: ATORVASTATIN 10 MG TAB GTB (21:05)
[2018-03-09] MEDS: LORAZEPAM 4 MG/ML VIAL IV (03:17)
[2018-03-09] MEDS: INSULIN ASPART [NOVOLOG] 3 ML PEN SC ×4 (06:00→17:40)
[2018-03-09] MEDS: LANSOPRAZOLE 30 MG CAP GTB (06:03)
[2018-03-09] MEDS: APIXABAN 5 MG TABLET PO (10:23)
[2018-03-09] MEDS: BALSAM PERU/CASTOR OIL 60 GM TUBE TOP (10:23)
[2018-03-09] MEDS: DOCUSATE SODIUM 10 MG/ML (10ML CUP) GTB (10:23)
[2018-03-09] MEDS: POLYETHYLENE GLYCOL 17 GM PACKET GTB (10:23)
[2018-03-09 10:27] LABS: VANCOMYCIN,TROUGH 16.9 ug/ml (10.0-20.0)
[2018-03-09] MEDS: NPH, HUMAN INSULIN ISOPHANE 3ML VIAL SC (10:37)
[2018-03-09] MEDS: VANCOMYCIN 750 MG (PMX) 250 ML IVPB (12:07)
[2018-03-09] MEDS: FUROSEMIDE 20 MG INJ IV (17:40)
[2018-03-09] MEDS ORDERED: METOPROLOL 25 MG TAB PO (21:00)
== END 2018-03-09 19:56 | disposition short-term general hospital (02) | DRG 4 ==
LOC: TEL 03-08 01:55 → E/R 15:00 → ICU 18:05
PROC: 0B110F4 Bypass Trachea to Cutaneous with Tracheostomy Device, Open Approach (ICD-10-PCS; principal; 2018-03-06 13:30)
PROC: 5A1955Z Respiratory Ventilation, Greater than 96 Consecutive Hours (ICD-10-PCS; 2018-03-06 14:33)
PROC: 0BH17EZ Insertion of Endotracheal Airway into Trachea, Via Natural or Artificial Opening (ICD-10-PCS; 2018-03-06 14:33)
PROC: 02HV33Z Insertion of Infusion Device into Superior Vena Cava, Percutaneous Approach (ICD-10-PCS; 2018-03-06 14:33)
DX: A41.9 Sepsis, unspecified organism (principal); J96.22 Acute and chronic respiratory failure with hypercapnia; J18.9 Pneumonia, unspecified organism; J96.21 Acute and chronic respiratory failure with hypoxia; R65.21 Severe sepsis with septic shock; G93.41 Metabolic encephalopathy; J95.03 Malfunction of tracheostomy stoma; L03.313 Cellulitis of chest wall; E87.2 Acidosis; E44.0 Moderate protein-calorie malnutrition; E87.0 Hyperosmolality and hypernatremia; N39.0 Urinary tract infection, site not specified; L02.213 Cutaneous abscess of chest wall; D64.9 Anemia, unspecified; R13.10 Dysphagia, unspecified; E11.9 Type 2 diabetes mellitus without complications; I10 Essential (primary) hypertension; I48.2 Chronic atrial fibrillation; Z95.1 Presence of aortocoronary bypass graft; G70.00 Myasthenia gravis without (acute) exacerbation; I95.9 Hypotension, unspecified; I25.10 Atherosclerotic heart disease of native coronary artery without angina pectoris; F32.9 Major depressive disorder, single episode, unspecified; F03.90 Unspecified dementia, unspecified severity, without behavioral disturbance, psychotic disturbance, mood disturbance, and anxiety; Z68.22 Body mass index [BMI] 22.0-22.9, adult; K21.9 Gastro-esophageal reflux disease without esophagitis; Z88.0 Allergy status to penicillin
CPT/HCPCS: 31500; 36415; 36569; 36600; 71045; 71260; 76536; 76937; 80048; 80053; 80162; 80202; 81001; 82803; 82962; 83605; 83735; 84100; 84443; 84484; 85025; 85610; 85730; 86703; 86706; 86803; 87040; 87070; 87081; 87086; 87340; 89220; 93005; 93306; 94002; 94003; 94640; 94664; 94770; 96374; 99285-25